=== PATIENT | female | born 1960 | race Caucasian/White ===

== ENCOUNTER 2017-08-28 18:00 | Emergency (ER) | payer OTHER ==
[2017-08-28 18:00] VITALS: BMI 45.7
[2017-08-28 18:13] VITALS: TEMP 98.7
--- NOTE | 2017-08-28 18:23 | C.PDOC ---
History Of Present Illness 57 y/o female presents to the ER complaining of left rib pain after she injured her left rib at work 1 week ago. Patient states that she has been taking Advil for pain. Denies having cough, SOB, fever, and chills. Time Seen by Provider: 08/28/17 18:16 Chief Complaint (Nursing): Rib Injury History Per: Patient History/Exam Limitations: no limitations Onset/Duration Of Symptoms: Days Current Symptoms Are (Timing): Still Present Severity: Moderate Past Medical History Reviewed: Historical Data, Nursing Documentation, Vital Signs Vital Signs: Last Vital Signs Temp 98.7 F 08/28/17 18:11 Pulse 79 08/28/17 19:17 Resp 16 08/28/17 19:17 BP 132/82 08/28/17 19:17 Pulse Ox 98 08/28/17 19:17 - Medical History PMH: Bronchitis (2012) Other Surgeries: Hx of surgeries - [facility] Procedures NAIL REMOVAL (10/29/13) Family History: States: No Known Family Hx - Social History Hx Alcohol Use: No Hx Substance Use: No - Immunization History Hx Tetanus Toxoid Vaccination: No Hx Influenza Vaccination: No Hx Pneumococcal Vaccination: No Review Of Systems Except As Marked, All Systems Reviewed And Found Negative. Constitutional: Negative for: Fever, Chills Cardiovascular: Positive for: Other (left rib pain) Respiratory: Negative for: Cough, Shortness of Breath Physical Exam - Physical Exam Appears: Non-toxic Skin: Normal Color, Warm, Dry Head: Atraumatic, Normacephalic Eye(s): bilateral: Normal Inspection Nose: Normal Oral Mucosa: Moist Neck: Supple Chest: Symmetrical, Tenderness (tenderness to left lateral lower rib) Cardiovascular: Rhythm Regular Respiratory: Normal Breath Sounds, No Rales, No Rhonchi, No Wheezing Extremity: Bilateral: Atraumatic, Normal Color And Temperature, Normal ROM Neurological/Psych: Oriented x3, Normal Speech ED Course And Treatment O2 Sat by Pulse Oximetry: 96 (RA) Pulse Ox Interpretation: Normal - Other Rad X-Ray- Chest and Ribs X-Ray: Viewed By Me, Read By Radiologist Interpretation: Date of service: 08/28/2017. PROCEDURE: Radiographs of the Chest and Left Ribs. HISTORY: pain s.p injury one week ago. COMPARISON: None available. TECHNIQUE: Frontal radiograph of the chest and multiple oblique radiographs of the left ribs were obtained. FINDINGS: LEFT RIBS: No fracture or focal lesion visualized. LUNGS: Clear. PLEURA: No pneumothorax or pleural fluid. CARDIOVASCULAR: Normal sized heart. No pulmonary vascular congestion. OTHER FINDINGS: None. IMPRESSION: Unremarkable radiographs of the chest and left ribs. No left rib fracture. Medical Decision Making Medical Decision Making: Impression: rib injury Plan: * Ribs and chest xray Progress: Xray viewed by me showing no acute rib fracture or acute disease. On reassessment, patient is resting comfortably, and is in no acute distress. Patient was instructed to follow up with physician/clinic in 1-2 days for further evaluation. Disposition Counseled Patient/Family Regarding: Diagnosis, Need For Followup - Disposition Referrals: [facility] [Outside] [facility] [Outside] [facility] [Outside] Disposition: HOME/ ROUTINE Disposition Time: 19:00 Condition: GOOD Additional Instructions: Take Tylenol or Motrin for pain as needed Xray shows no fracture Instructions: Bruised Rib (DC) Forms: [employer] (Egyptian) - POA Present On Arrival: None - Clinical Impression Clinical Impression: Contusion of rib - PA / [employer] / Resident Statement MD/DO has reviewed & agrees with the documentation as recorded. - Scribe Statement The provider has reviewed the documentation as recorded by the Silvanoibe Mariel Godinez Provider Attestation All medical record entries made by the Silvanoiballyson were at my direction and personally dictated by me. I have reviewed the chart and agree that the record accurately reflects my personal performance of the history, physical exam, medical decision making, and the department course for this patient. I have also personally directed, reviewed, and agree with the discharge instructions and disposition.
--- NOTE | 2017-08-28 18:54 | RAD ---
Date of service: 08/28/2017 PROCEDURE: Radiographs of the Chest and Left Ribs. HISTORY: pain s.p injury one week ago COMPARISON: None available. TECHNIQUE: Frontal radiograph of the chest and multiple oblique radiographs of the left ribs were obtained. FINDINGS: LEFT RIBS: No fracture or focal lesion visualized. LUNGS: Clear. PLEURA: No pneumothorax or pleural fluid. CARDIOVASCULAR: Normal sized heart. No pulmonary vascular congestion. OTHER FINDINGS: None. IMPRESSION: Unremarkable radiographs of the chest and left ribs. No left rib fracture.
[2017-08-28 19:18] VITALS: BP 132/82; PULSE 79; RESP 16
[2017-08-28 19:46] VITALS: O2SAT 96
== END 2017-08-28 19:17 | disposition home or self-care (01) ==
LOC: C.ER 18:00
DX: S20.212A Contusion of left front wall of thorax, initial encounter (principal); X58.XXXA Exposure to other specified factors, initial encounter; Y92.89 Other specified places as the place of occurrence of the external cause; Y99.0 Civilian activity done for income or pay

== ENCOUNTER 2017-09-22 13:14 | Emergency (ER) | payer OTHER ==
[2017-09-22 13:14] VITALS: BMI 45.7
[2017-09-22 13:25] VITALS: RESP 18
--- NOTE | 2017-09-22 13:46 | C.PDOC ---
History Of Present Illness 57-year-old female, presents to the emergency department with complaints of bilateral lower extremity edema (left greater than right) for months. Patient went to see [employer] Dr Can, who wrote Rx for LE dupplex to r/o DVT on 2017. Patient states she came to ED with script, but was told that this is an outpatient procedure. Patient notes she was unable to see anyone due to lack of insurance, but she got insurance recently, and went to get the doppler done, but they referred her to ED for further evaluation. Patient denies chest pain/ SOB/ numbness/weakness, or any other associated symptoms. No other complaints at this time Time Seen by Provider: 09/22/17 13:34 Chief Complaint (Nursing): Lower Extremity Problem/Injury Past Medical History Reviewed: Historical Data, Nursing Documentation, Vital Signs Vital Signs: Last Vital Signs Temp 97.9 F 09/22/17 16:30 Pulse 67 09/22/17 16:30 Resp 18 09/22/17 16:30 BP 111/69 09/22/17 16:30 Pulse Ox 96 09/22/17 16:57 - Medical History PMH: Bronchitis (2012) Denies: Chronic Kidney Disease - [facility] Procedures NAIL REMOVAL (10/29/13) Family History: States: No Known Family Hx - Social History Hx Alcohol Use: No Hx Substance Use: No - Immunization History Hx Tetanus Toxoid Vaccination: No Hx Influenza Vaccination: No Hx Pneumococcal Vaccination: No Physical Exam - Physical Exam Appears: Non-toxic, No Acute Distress Skin: Normal Color, Warm, Dry, No Rash Head: Atraumatic, Normacephalic Eye(s): bilateral: Normal Inspection Nose: Normal Oral Mucosa: Moist Lips: Normal Appearing Neck: Normal ROM Cardiovascular: Rhythm Regular, No Murmur Respiratory: Normal Breath Sounds, No Accessory Muscle Use Gastrointestinal/Abdominal: Normal Exam Back: Normal Inspection Extremity: Pedal Edema (b/l, L>R, varicous veins b/l, no skin dicoloration, no ulcers, no erythema, no warmths, no lesions), No Deformity Pulses: Left Dorsalis Pedis: Normal, Right Dorsalis Pedis: Normal Neurological/Psych: Oriented x3, Normal Speech ED Course And Treatment O2 Sat by Pulse Oximetry: 96 Pulse Ox Interpretation: Normal (RA) Medical Decision Making Medical Decision Making: Plan: * Doppler - negative for DVT b/l * patient is stable to be d/c home, instructed LE elevation at night, pressure stocking, f/u in Clinic within 1-2 days. Disposition - Disposition Referrals: [facility] [Outside] Molina Can DPM [Staff Provider] - Disposition: HOME/ ROUTINE Disposition Time: 16:54 Condition: STABLE Additional Instructions: Follow up in Clinic within 1-2 days. Return to ED if feel worse. Instructions: Dependent Edema (DC) Forms: [employer] (Cape Verdean) - Clinical Impression Clinical Impression: Swelling of extremity - Scribe Statement The provider has reviewed the documentation as recorded by the Scribe (Adrian mccarthy) All medical record entries made by the Scribe were at my direction and personally dictated by me. I have reviewed the chart and agree that the record accurately reflects my personal performance of the history, physical exam, medical decision making, and the department course for this patient. I have also personally directed, reviewed, and agree with the discharge instructions and disposition.
[2017-09-22 16:31] VITALS: BP 111/69; PULSE 67; TEMP 97.9
[2017-09-22 16:55] VITALS: O2SAT 96
--- NOTE | 2017-09-23 12:42 | VASCLAB ---
Date of service: 09/22/2017 PROCEDURE: Lower Extremity Venous Duplex Exam. HISTORY: extremity edema PRIORS: None. TECHNIQUE: Bilateral common femoral, femoral, popliteal and posterior tibial, peroneal and great saphenous veins were evaluated. Flow was assessed with color Doppler, compressibility, assessment of phasic flow and augmentation response. Report prepared by Ed Vaughan, EMERY, RVT FINDINGS: RIGHT: 1. Common Femoral Vein: 1.1. Compressibility - Fully compressible: Thrombus - None : Flow - Phasic: Augmentation -Normal: Reflux - None. 2. Femoral Vein: 2.1. Compressibility - Fully compressible: Thrombus - None : Flow - Phasic: Augmentation -Normal: Reflux - None. 3. Popliteal Vein: 3.1. Compressibility - Fully compressible: Thrombus - None : Flow - Phasic: Augmentation -Normal: Reflux - None. 4. Posterior Tibial Vein: 4.1. Compressibility - Fully compressible: Thrombus - None: Flow - Phasic: Augmentation -Normal: Reflux - None. 5. Peroneal Vein: 5.1. Compressibility - Fully compressible: Thrombus - None: Flow - Phasic: Augmentation -Normal: Reflux - None. 6. Great Saphenous Vein: 6.1. Compressibility - Fully compressible: Thrombus - None: Flow - Phasic: Augmentation - Normal: Reflux - None. LEFT: 1. Common Femoral Vein: 1.1. Compressibility - Fully compressible: Thrombus - None: Flow - Phasic: Augmentation -Normal: Reflux - None. 2. Femoral Vein: 2.1. Compressibility - Fully compressible: Thrombus - None: Flow - Phasic: Augmentation -Normal: Reflux - None. 3. Popliteal Vein: 3.1. Compressibility - Fully compressible: Thrombus - None : Flow - Phasic: Augmentation -Normal: Reflux - None. 4. Posterior Tibial Vein: 4.1. Compressibility - Fully compressible: Thrombus - None: Flow - Phasic: Augmentation -Normal: Reflux - None. 5. Peroneal Vein: 5.1. Compressibility - Fully compressible: Thrombus - None: Flow - Phasic: Augmentation -Normal: Reflux - None. 6. Great Saphenous Vein: 6.1. Compressibility - Fully compressible: Thrombus - None: Flow - Phasic: Augmentation - Normal: Reflux - None. OTHER FINDINGS: Right: None significant. Left: None significant. IMPRESSION: Right: No evidence of deep or superficial vein thrombosis of the right lower extremity. Normal valve function noted of the right side. Left: No evidence of deep or superficial vein thrombosis of the left lower extremity. Normal valve function noted of the left side.
== END 2017-09-22 17:07 | disposition home or self-care (01) ==
LOC: C.ER 13:14
DX: M79.89 Other specified soft tissue disorders (principal)

== ENCOUNTER 2017-10-13 11:38 | Emergency (ER) | payer OTHER ==
[2017-10-13 11:38] VITALS: BMI 45.7
[2017-10-13 11:52] VITALS: PULSE 77; RESP 18; TEMP 97.3; O2SAT 97
--- NOTE | 2017-10-13 12:07 | C.PDOC ---
History Of Present Illness 57 y/o female presents to ED with c/o left sided dental pain for 2 days radiating to left ear. Patient is requesting infection be treated prior to going to dentist since she must pay out of pocket for dentist. Patient did not take anything for pain. Denies fever, difficulty breathing, difficulty swallowing, chest pain, tongue swelling, or any other complaints at this time. Time Seen by Provider: 10/13/17 11:52 Chief Complaint (Nursing): ENT Problem History Per: Patient History/Exam Limitations: no limitations Onset/Duration Of Symptoms: Days Current Symptoms Are (Timing): Still Present Past Medical History Reviewed: Historical Data, Nursing Documentation, Vital Signs Vital Signs: Last Vital Signs Temp 97.3 F L 10/13/17 11:50 Pulse 77 10/13/17 11:50 Resp 18 10/13/17 11:50 BP Pulse Ox 97 10/13/17 16:07 - Medical History PMH: Bronchitis (2012) Surgical History: No Surg Hx - [facility] Procedures NAIL REMOVAL (10/29/13) Family History: States: No Known Family Hx - Social History Hx Alcohol Use: No Hx Substance Use: No - Immunization History Hx Tetanus Toxoid Vaccination: No Hx Influenza Vaccination: No Hx Pneumococcal Vaccination: No Review Of Systems ENT: Positive for: Ear Pain, Mouth Pain. Negative for: Ear Discharge, Mouth Swelling, Throat Pain Respiratory: Negative for: Cough Skin: Negative for: Rash Physical Exam - Physical Exam Appears: Non-toxic, No Acute Distress Skin: Warm, Dry, No Rash Head: Atraumatic, Normacephalic Eye(s): bilateral: Normal Inspection, EOMI Ear(s): Bilateral: Normal Nose: Normal Oral Mucosa: Moist Teeth: Other (poor dentition) Gingiva: Erythema, Swelling (left maxillar gingiva), Tender, No Bleeding, No Abscess Throat: Normal, No Erythema, No Exudate Neck: Normal ROM, Supple Chest: Symmetrical Cardiovascular: Rhythm Regular Respiratory: Normal Breath Sounds, No Accessory Muscle Use Extremity: Normal ROM Neurological/Psych: Oriented x3, Normal Speech, Normal Cognition ED Course And Treatment O2 Sat by Pulse Oximetry: 97 (RA) Pulse Ox Interpretation: Normal Progress Note: Patient refused pain medication. Instructed to follow up with dentist in 1-2 days. Disposition - Disposition Referrals: [facility] [Outside] Disposition: HOME/ ROUTINE Disposition Time: 12:05 Condition: GOOD Additional Instructions: Follow up with your dentist in 1-2 days. Return to ER if symptoms persist or worsen. Prescriptions: Amoxicillin 875 mg PO BID #20 tablet Ibuprofen [Motrin] 600 mg PO Q6 PRN #20 tab PRN Reason: Pain, Mild (1-3) Instructions: Dental Pain (DC) Forms: [employer] (Maltese) - Clinical Impression Clinical Impression: Pain, dental - PA / TORPEDO MAN / Resident Statement MD/DO has reviewed & agrees with the documentation as recorded. - Scribe Statement The provider has reviewed the documentation as recorded by the Silvanoiballyson Callahan All medical record entries made by the Helen were at my direction and personally dictated by me. I have reviewed the chart and agree that the record accurately reflects my personal performance of the history, physical exam, medical decision making, and the department course for this patient. I have also personally directed, reviewed, and agree with the discharge instructions and disposition.
== END 2017-10-13 12:15 | disposition home or self-care (01) ==
LOC: C.ER 11:38
DX: K08.89 Other specified disorders of teeth and supporting structures (principal)